=== PATIENT | male | born 1950 | race Caucasian/White ===

== ENCOUNTER → 2017-01-15 | Outpatient (CLI) | payer MEDICARE, OTHER ==
--- NOTE | 2017-01-15 11:06 | RADRPT ---
PROCEDURE: XR Hip. CLINICAL INDICATION: hip pain TECHNIQUE: AP and frog lateral views of the right hip with AP pelvis were performed. COMPARISON: None available FINDINGS: No fracture or dislocation is identified. There is advanced right hip arthrosis with joint space na rrowing, subchondral cystic changes, prominent osteophytes and adjacent periarticular calcifications . No destructive osseous changes are seen. Clips are noted at the total region. IMPRESSION: Advanced right hip arthrosis. RPTAT: GG .Noah Moya MD, MD Date Time Electronically viewed and signed by .Noah Moya MD, MD on 01/15/2017 11:05 .O/
== END | disposition home or self-care (01) ==
LOC: HKI 09:30
PROVIDERS: ATTEND Orthopaedic Surgery
DX: M25.551 Pain in right hip (principal); M16.11 Unilateral primary osteoarthritis, right hip
CPT/HCPCS: 73502

== ENCOUNTER → 2017-01-22 | Outpatient (CLI) | payer MEDICARE, OTHER | END | disposition home or self-care (01) | LOC: HKI 10:43 | PROVIDERS: ATTEND Orthopaedic Surgery | DX: Z01.818 Encounter for other preprocedural examination (principal); M16.11 Unilateral primary osteoarthritis, right hip | CPT/HCPCS: G0463 ==

== ENCOUNTER 2017-01-28 09:25 | Inpatient (IN) | payer MEDICARE, OTHER ==
[2017-01-22 13:46] VITALS: Ht 180.3 cm; Wt 91.0 kg
[~2017-01-28] VITALS: Ht 180.3 cm; Wt 91.0 kg
[2017-04-22] VITALS (31 sets, daily range): BP systolic 113–154; BP diastolic 53–73; PULSE 62–80; RESP 5–18
[2017-04-22] MEDS ORDERED: PREGABALIN 300 MG PO X1 PO SCH (06:00)
[2017-04-22] MEDS ORDERED: LACTATED RINGER'S 1,000 ML IV SCH (06:00)
[2017-04-22] MEDS ORDERED: CELECOXIB 400 MG PO X1 DOSE PO SCH (06:00)
[2017-04-22] MEDS ORDERED: CEFAZOLIN 2GM/50 ML (PMX) 50 ML X1 BEFORE INCISION IVPB SCH (06:00)
[2017-04-22] MEDS ORDERED: TRANEXAMIC ACID 910 MG in SOD CHLORIDE 0.9% 90.9 ML IV SCH (06:00)
[2017-04-22] MEDS: traMADOL 50 MG TAB X 1 DOSE PO SCH ×2 (06:10→13:11)
[2017-04-22] MEDS: oxyCODONE (CR) 10 MG TAB [oxyCONTIN] X1 DOSE PO SCH ×2 (06:10→13:11)
[2017-04-22] MEDS ORDERED: VANCOMYCIN 1 GM INJ ONE (06:42)
[2017-04-22] MEDS ORDERED: SODIUM CL BACTERIOSTATIC 30 ML INJ ONE (06:42)
[2017-04-22] MEDS ORDERED: POLYMYXIN B 500000 UNIT INJ ONE (06:42)
[2017-04-22] MEDS ORDERED: BACITRACIN 50000 UNITS INJ ONE (06:45)
[2017-04-22] MEDS ORDERED: CEFAZOLIN 1 GM INJ ONE (07:00)
[2017-04-22] MEDS ORDERED: PROPOFOL 200 MG INJ ONE (07:00)
--- NOTE | 2017-04-22 07:16 | HPN ---
Date/Time of Note Date/Time of Note DATE: 04/22/17 TIME: 07:15 Interval H&P Admission Note Pt. seen H&P reviewed: No system changes No changes from H&P on 04/10/17 by BRETT Jacinto MD Apr 22, 2017 07:16
[2017-04-22] MEDS ORDERED: MIDAZOLAM 1 MG/ML 2 ML INJ ONE (07:18)
[2017-04-22] MEDS ORDERED: FENTAnyl 50 MCG/ML VIAL ONE (07:18)
[2017-04-22] MEDS ORDERED: PROPOFOL 100 ML ONE (08:01)
[2017-04-22] MEDS ORDERED: LIDOCAINE 2% (SDV) 5 ML INJ ONE (08:01)
[2017-04-22] MEDS ORDERED: PAIN COCKTAIL-CEFUROXIME IRR ONE ×7 (09:00)
[2017-04-22] MEDS ORDERED: BUPIVACAINE LIPOSOME/PF 266 MG/20 ML VIAL INFIL ONE (09:00)
[2017-04-22] MEDS ORDERED: EXPAREL NOTE (BUPIVICAINE LIPOSOMAL) XX SCH (09:00)
[2017-04-22] MEDS ORDERED: EPHEDrine SULFATE 50 MG/5 ML SYG ONE (09:01)
[2017-04-22] MEDS ORDERED: FAMOTIDINE 20 MG INJ ONE (09:01)
[2017-04-22] MEDS ORDERED: DEXAMETHASONE 4 MG/ML 1 ML INJ ONE (09:01)
[2017-04-22] MEDS ORDERED: ONDANSETRON 4 MG INJ ONE (09:01)
[2017-04-22] MEDS ORDERED: ONDANSETRON 4 MG INJ IV PRN ×2 (09:30→10:30)
[2017-04-22] MEDS ORDERED: PROCHLORPERAZINE 10 MG INJ IV PRN (09:30)
[2017-04-22] MEDS ORDERED: DIPHENHYDRAMINE 50 MG INJ IV PRN (09:30)
[2017-04-22] MEDS ORDERED: MEPERIDINE 25 MG INJ IV PRN (09:30)
[2017-04-22] MEDS ORDERED: FENTAnyl 50 MCG/ML VIAL IV PRN (09:30)
[2017-04-22] MEDS ORDERED: TRANEXAMIC ACID 910 MG in SOD CHLORIDE 0.9% 100 ML IVPB SCH (10:00)
--- NOTE | 2017-04-22 10:20 | PN ---
Date/Time of Note Date/Time of Note DATE: 04/22/17 TIME: 10:16 Assessment/Plan Lines/Catheters IV Catheter Type (from Nrsg): Peripheral IV Assessment/Plan Assessment/Plan Stable in PACU, s/p right anterior DELMI -continue Ancef -pain meds as needed -ASA/SCDs -OOB with PT -check AM labs -monitor drain -d/c teresa in AM XR of the right hip is pending at this time Subjective 24 Hr Interval Summary Stable in PACU. Denies pain. Moving all extremities. Drowsy from anesthesia. Exam/Review of Systems Vital Signs Vitals Vital Signs Date Time Temp Pulse Resp B/P Pulse Ox O2 Delivery O2 Flow Rate FiO2 04/22/17 06:00 97.9 71 18 137/68 96 Room Air Exam Free Text/Dictation Hemovac: minimal Dressing dry Incision clean, dry, and intact without redness or drainage 5/5 Quadriceps, Tibialis Anterior, EHL, Gastroc, Soleus, Peroneals Normal sensation Palpable DT/PT, CR <2 sec No distal edema KIP GAFFNEY PA-C Apr 22, 2017 10:20
[2017-04-22] MEDS: HYDROmorphONE (0.2 MG/ML) 10ML SYG IV PRN ×5 (10:22→11:21)
--- NOTE | 2017-04-22 10:29 | OPR ---
Date/Time of Note Date/Time of Note DATE: 04/22/17 TIME: 10:25 Operative Report Procedure Description DATE: 04/22/2017 PREOPERATIVE DIAGNOSIS: Right hip osteoarthritis POSTOPERATIVE DIAGNOSIS: Right hip osteoarthritis OPERATION PERFORMED: Right anterior total hip arthroplasty SURGEON: Brett Jiang MD LUMBER TRIMMER: Alex Cox PA-C COMPONENTS USED: DePuy size 58 mm Gription Dundee cup, 58/40 neutral Ultrex polyethylene liner, size 7 standard Actis stem, 40+5 ceramic head ANESTHESIA: Spinal plus general endotracheal intubation. ANESTHESIOLOGIST: Joyce Coronado M.D. ESTIMATED BLOOD LOSS: 400 cc INTRAVENOUS FLUIDS: Crystalloid 2 L. SPECIMENS: Femoral head. DRAINS: Hemovac 1 COMPLICATIONS: None. DISPOSITION: The patient tolerated the procedure well and was taken to the recovery room in stable condition. INDICATIONS: The patient is a 66-year-old male who has developed advanced osteoarthritis of his right hip. He has tried a multitude of nonsurgical means of treatment to address his pain including activity modifications, pain medications, and ambulatory assist devices. He has had worsening pain that has not improved and I felt he would benefit from a total hip arthroplasty through an anterior approach. 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 He underwent a parathyroidectomy and his calcium levels normalized. 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 The risks, benefits, and alternatives of the procedure were explained in detail to the patient. I explained the risks of the surgery to include, but not be limited to: bleeding and possible need for blood transfusion; infection; pain; stiffness; neurovascular injury with possible numbness, weakness, and/or paralysis anywhere from the hip down to the toes; fracture; instability; dislocation; leg length inequality; wear and/or loosening of the prosthesis and possible need for future revision; blood clots; pulmonary embolism; and anesthetic complications such as heart attack, stroke, GI bleed, pneumonia, and/ or . Ample time was allowed for the patient to ask questions, all of which were addressed and answered. The patient understood the risks involved and wished to proceed. Informed consent was signed prior to the procedure. PROCEDURE: The patient's right hip was initialed with a marking pen in the preoperative area to identify the correct operative site. The patient was brought to the operating room and transferred from the [facility] to the [facility] where a spinal anesthetic was administered. The patient was then anesthetized and intubated. A Latif catheter was placed. Both feet were placed into well padded boots which were then placed into the leg holders of the traction booms. A timeout was performed to confirm that the right side was the correct operative site. The patient was given 2 g of intravenous Ancef within one hour prior to the procedure. The operative hip was prepped and draped in the usual sterile fashion. A 10 cm oblique incision was made over the anterior aspect of the hip and carried down through subcutaneous tissue and fat with sharp dissection. The tensor fascia em was incised along the length of the wound. The tensor fascia muscle was retracted laterally and the sartorius medially. The anterior circumflex vessels were identified and tied off with 2-0 silk suture and coagulated with the [employer] medical physics researcher. The rectus femoris was elevated off the anterior capsule and an anterior capsulectomy performed. There are multiple loose bodies within the hip joint that were excised. A femoral neck osteotomy was made and the head removed from the acetabulum. The acetabulum was denuded of cartilage circumferentially, as was the femoral head. Retractors were placed around the acetabulum. The remnants of the labrum and ligamentum teres were excised. I reamed the acetabulum to the medial wall and then went into an anatomic position and increased the reamer size in 2 mm increments until I got a good bite and was down to bleeding subchondral bone. The Dundee cup was opened and impacted into the acetabulum and sat flush circumferentially, getting a good bite. C-arm imaging showed it had about 40 to 45 degrees of abduction and 20 degrees of anteversion. The real liner was opened and impacted into the acetabulum and sat flush circumferentially. Attention was turned towards the femur. The operative leg was carefully lowered to the floor with the leg adducted. The foot was then externally rotated to approximately 110 degrees. A posteromedial release was performed to optimize exposure. The femoral hook was placed underneath the proximal femur and the hydraulic lift was then used to elevate the femur up out of the wound. The cookie cutter osteotome was used to remove the remaining overhanging greater trochanter. The femur was then broached, going up in one size increments until it sat flush with the neck cut and a stable fit was achieved. The trial neck and head were assembled and reduced into the acetabulum. Fluoroscopic imaging showed the components to be in good position and the leg lengths and offsets to be equal. At this point, the trial was dislocated and the trial broach removed. The canal was irrigated and dried. The real stem was opened and impacted into the femur. The trunnion was irrigated and dried, and the real femoral head was impacted onto the trunnion, and reduced into the acetabulum. The soft tissues were infiltrated with a mixture of 150 mg of 0.5% Bupivacaine, 8 mg of Duramorph, 300 mcg of epinephrine, 30 mg of Toradol, 100 mcg of clonidine, 750 mg of cefuroxime and 86 mL of normal saline, followed by an injection of 266 mg of liposomal Bupivacaine. At this point the hip was irrigated with a mixture of betadine/saline and then antibiotic saline with pulsatile lavage. A Hemovac drain was placed in the deep portion of the wound and brought out the anterolateral thigh. There was good hemostasis. The tensor fascia em was repaired with a running #1 Vicryl. The deep fat layer was irrigated and closed with 2-0 Stratafix and the subcutaneous layer closed with 3 -0 Vicryl and the skin was closed with gonzález and then sealed with Dermabond. The drain was secured with 3-0 nylon. The sponge and needle counts were correct at the end of the case. The wound was covered with an occlusive dressing. The patient was awakened, extubated, and taken to the recovery room in stable condition. BRETT JIANG MD Apr 22, 2017 10:29
[2017-04-22] MEDS ORDERED: NACL 0.9% 3 ML SYG IV SCH (10:30)
[2017-04-22] MEDS ORDERED: ASPIRIN (EC) 325 MG TAB PO ONE (10:30)
[2017-04-22] MEDS ORDERED: NA PHOSPHATE/BIPHOS 133 ML ENEMA PR PRN (10:30)
[2017-04-22] MEDS ORDERED: HYDROCODONE/APAP (5/325) TAB PO PRN (10:30)
[2017-04-22] MEDS ORDERED: DIPHENHYDRAMINE 25 MG CAP PO PRN (10:30)
[2017-04-22] MEDS ORDERED: HYDROmorphONE 1 MG/ML SYG IV PRN (10:30)
[2017-04-22] MEDS ORDERED: BISACODYL 10 MG SUPP PR PRN (10:30)
[2017-04-22] MEDS: CEFAZOLIN 2 GM/50 ML (PMX) 50 ML IVPB SCH ×2 (10:39→18:12)
--- NOTE | 2017-04-22 11:47 | RADRPT ---
PROCEDURE: XR Pelvis CLINICAL INDICATION: Postop TECHNIQUE: An AP radiograph was submitted. COMPARISON: 01/15/2017 FINDINGS: Osseous structures: Since the previous study, the patient has undergone a total right hip arthroplas ty and the components appear well seated although of the inferior femoral stem is not included. The remaining osseous elements appear intact. Joint spaces: The left hip and the sacroiliac joints appear unremarkable. Soft tissues: A surgical drain has been placed and there is a small amount of subcutaneous air. Lat eral gonzález are noted. A Latif catheter is now evident. IMPRESSION: 1. There is now a well seated total right hip replacement with a surgical drain and superficial sta ples evident. 2. A Latif catheter is been placed. Physician Hua Date Time Electronically viewed and signed by Physician Hua on 04/22/2017 11:47 /
[2017-04-22 11:49] LABS: HEMOGLOBIN 11.7 g/dl (14.0-18.0)
--- NOTE | 2017-04-22 11:49 | RADRPT ---
PROCEDURE: XR Right Hip CLINICAL INDICATION: Postop TECHNIQUE: A single AP portable view of the right hip was submitted. COMPARISON: Compared to the intraoperative study done earlier on the same date FINDINGS: Osseous structures: There is again a well seated total right hip replacement. Joint spaces: The prosthetic joint spaces well maintained. Soft tissues: A surgical drain and lateral gonzález been placed. There is a small amount of subcutan eous air. IMPRESSION: 1. Well seated total right hip replacement. 2. A drain is been placed send there are superficial gonzález seen laterally. Physician Hua Date Time Electronically viewed and signed by Physician Hua on 04/22/2017 11:48 /
--- NOTE | 2017-04-22 11:50 | RADRPT ---
PROCEDURE: RF intraoperative images of right hip CLINICAL INDICATION: Right hip arthroplasty TECHNIQUE: 81 x-ray images were obtained intraoperatively during a right hip arthroplasty procedur e. COMPARISON: None available FINDINGS: 81 x-ray images were obtained intraoperatively for localization during a total right hip replacement . 8.6 minutes of fluoroscopy time was utilized by Dr. Donis during the procedure. IMPRESSION: Xray images obtained intraoperatively for localization during a total right hip replacement. Physician Hua Date Time Electronically viewed and signed by Physician Hua on 04/22/2017 11:50 RH/
[2017-04-22] MEDS: LACTATED RINGER'S 1,000 ML IV SCH ×3 (12:00→21:55)
[2017-04-22] MEDS: traMADol 50 MG TAB PO SCH ×2 (12:00→18:13)
[2017-04-22 12:07] LABS: CALCIUM 7.8 mg/dl (8.4-10.2); CREATININE 0.75 mg/dl (0.61-1.24); POTASSIUM 5.4 mmol/L (3.5-5.1)
[2017-04-22] MEDS ORDERED: TRANEXAMIC ACID 910 MG in SOD CHLORIDE 0.9% 100 ML IVPB ONE ×2 (13:30→16:30)
[2017-04-22] MEDS: PANTOPRAZOLE (EC) 40 MG TAB PO SCH (18:12)
[2017-04-22 19:51] LABS: ADD UMIC YES; UR ASCORBIC ACID NEGATIVE (NEGATIVE); UR BILIRUBIN (Dip) NEGATIVE (NEGATIVE); UR BLOOD (Dip) NEGATIVE (NEGATIVE); UR CLARITY CLEAR (CLEAR); UR COLOR YELLOW (YELLOW); UR GLUCOSE (Dip) NEGATIVE (NEGATIVE); UR KETONES (Dip) TRACE mg/dL (NEGATIVE); UR LEUKOCYTE ESTERASE (Dip) NEGATIVE Leu/ul (NEGATIVE); UR NITRITE (Dip) NEGATIVE (NEGATIVE); UR RBC 0 /HPF (0-5); UR SPECIFIC GRAVITY (Dip) 1.021 (1.003-1.030); UR TOTAL PROTEIN (Dip) 1+ mg/dl (NEGATIVE); UR URIC ACID CRYSTAL MANY /HPF (NONE SEEN); UR UROBILINOGEN (Dip) NEGATIVE (NEGATIVE)
[2017-04-22] MEDS: HYDROCODONE/APAP (5/325) TAB PO PRN (20:45)
[2017-04-22] MEDS: DOCUSATE SODIUM 100 MG CAP PO SCH (20:45)
[2017-04-23] MEDS: traMADol 50 MG TAB PO SCH ×4 (00:02→18:39)
[2017-04-23 00:15] VITALS: BP 128/58; RESP 19
[2017-04-23] MEDS: CEFAZOLIN 2 GM/50 ML (PMX) 50 ML IVPB SCH (01:16)
[2017-04-23] MEDS: HYDROCODONE/APAP (5/325) TAB PO PRN ×3 (01:17→14:22)
[2017-04-23 05:55] LABS: HEMATOCRIT 29.1 % (42.0-52.0); HEMOGLOBIN 9.7 g/dl (14.0-18.0)
[2017-04-23 06:14] LABS: MAGNESIUM 1.8 mg/dl (1.7-2.5); PHOSPHORUS 3.3 mg/dl (2.5-4.9)
[2017-04-23] MEDS: PANTOPRAZOLE (EC) 40 MG TAB PO SCH ×2 (06:17→17:35)
[2017-04-23] MEDS: LACTATED RINGER'S 1,000 ML IV SCH (06:17)
[2017-04-23 07:12] LABS: CALCIUM 7.9 mg/dl (8.4-10.2); CREATININE 0.68 mg/dl (0.61-1.24); POTASSIUM 4.3 mmol/L (3.5-5.1)
[2017-04-23] MEDS: DOCUSATE SODIUM 100 MG CAP PO SCH ×2 (08:19→21:00)
[2017-04-23] MEDS: ASPIRIN (EC) 325 MG TAB PO SCH (08:20)
[2017-04-23 08:28] VITALS: BP 121/56; RESP 18
--- NOTE | 2017-04-23 08:43 | PN ---
Date/Time of Note Date/Time of Note DATE: 04/23/17 TIME: 08:41 Assessment/Plan Lines/Catheters IV Catheter Type (from Nrsg): Peripheral IV Latif in Place (from Nrsg): Yes Assessment/Plan Assessment/Plan Stabel POD #1, s/p right anterior DELMI -d/c Ancef -pain meds as needed -ASA/SCDs -OOB with PT -drain removed -check AM labs -d/c planning. Possible discharge home tomorrow Subjective 24 Hr Interval Summary No acute overnight events. Denies significant pain. Began PT yesterday. VSS, afebrile. Will plan to go home upon discharge. Exam/Review of Systems Vital Signs Vitals Vital Signs Date Time Temp Pulse Resp B/P Pulse Ox O2 Delivery O2 Flow Rate FiO2 04/23/17 08:28 98.4 85 18 121/56 98 04/22/17 16:00 Room Air 04/22/17 11:51 3.0 Intake and Output 04/22/17 04/22/17 04/23/17 14:59 22:59 06:59 Intake Total 2300 ml 1625 ml 1650 ml Output Total 710 ml 1240 ml 2580 ml Balance 1590 ml 385 ml -930 ml Exam Free Text/Dictation Hemovac: 230cc Dressing dry Incision clean, dry, and intact without redness or drainage 5/5 Quadriceps, Tibialis Anterior, EHL, Gastroc, Soleus, Peroneals Normal sensation Palpable DT/PT, CR <2 sec No distal edema Results Result Diagram: 04/23/17 0431 04/23/17 043 KIP GAFFNEY PA-C Apr 23, 2017 08:42
--- NOTE | 2017-04-23 08:55 | CONS ---
Date/Time of Note Date/Time of Note DATE: 04/23/17 TIME: 08:51 Assessment/Plan Assessment/Plan Additional Assessment/Plan 1. Doing well post op right hip replacement 2. S/P parathyroidectomy with now nl calcium Consultation Date/Type/Reason Admit Date/Time Apr 22, 2017 at 05:29 Initial Consult Date Detailed Summary Respiratory: No cough, No shortness of breath Cardiovascular: No chest pain Gastrointestinal: no complaints Genitourinary: no complaints Musculoskeletal: bone/joint pain (mild right hip pain) Exam/Review of Systems Vital Signs Vitals Vital Signs Date Time Temp Pulse Resp B/P Pulse Ox O2 Delivery O2 Flow Rate FiO2 04/23/17 08:28 98.4 85 18 121/56 98 04/22/17 16:00 Room Air 04/22/17 11:51 3.0 Intake and Output 04/22/17 04/22/17 04/23/17 15:00 23:00 07:00 Intake Total 2300 ml 1625 ml 1650 ml Output Total 710 ml 1240 ml 2580 ml Balance 1590 ml 385 ml -930 ml Exam Neck: No jvd Respiratory: clear to auscultation Cardiovascular: regular rate and rhythm Gastrointestinal: soft Extremities: No edema (and no calf tend) Results Result Diagram: 04/23/17 0431 04/23/17 0431 Results 24 hrs Laboratory Tests Test 04/22/17 10:13 04/22/17 11:39 04/22/17 15:10 04/23/17 04:31 Urine Color YELLOW Urine Clarity CLEAR Urine pH 5.0 Urine Specific Rebuck 1.021 Urine Ketones TRACE A Urine Nitrite NEGATIVE Urine Bilirubin NEGATIVE Urine Urobilinogen NEGATIVE Urine Leukocyte Esterase NEGATIVE Urine Microscopic RBC 0 Urine Microscopic WBC 3 Urine Uric Acid Crystals MANY A Urine Hemoglobin NEGATIVE Urine Glucose NEGATIVE Urine Total Protein 1+ H Hemoglobin 11.7 L 9.7 L Hematocrit 37.0 L 29.1 #L Sodium Level 141 140 Potassium Level 5.4 H 4.6 4.3 Chloride Level 105 102 Carbon Dioxide Level 28 29 Anion Gap 13 13 Blood Urea Nitrogen 12 13 Creatinine 0.75 0.68 Glucose Level 151 125 Calcium Level 7.8 L 7.9 L Phosphorus Level 3.3 Magnesium Level 1.8 Medications Medications Current Medications Miscellaneous Information 1 ea 1 ea NOTE XX ; Start 04/22/17 at 09:00; Stop at 08:59 Lactated Ringer's (Lr) 1,000 ml @ 125 mls/hr Q8H IV Last administered on 06:17; Admin Dose 125 MLS/HR; Start 04/22/17 at 10:11 Tramadol HCl (Ultram) 50 mg Q6 PO Last administered on 04/23/17 06:17; Admin Dose 50 MG; Start 04/22/17 at 12:00; Stop 04/25/17 at 11:59 Acetaminophen/ Hydrocodone Bitart ([place] (5/325)) 1 tab Q4H PRN PO PAIN LEVEL 1 -3 Last administered on 04/23/17 08:20; Admin Dose 1 TAB; Start 04/22/17 at 10: 30 Acetaminophen/ Hydrocodone Bitart ([place] (5/325)) 2 tab Q4H PRN PO PAIN LEVEL 4 -7; Start 04/22/17 at 10:30 Hydromorphone HCl (Dilaudid) 1 mg Q3H PRN IV PAIN LEVEL 8-10; Start 04/22/17 at 10:30 Ondansetron HCl (Zofran Inj) 4 mg Q6H PRN IV NAUSEA AND/OR VOMITING; Start at 10:30 Bisacodyl (Dulcolax Supp) 10 mg Q12H PRN MA CONSTIPATION; Start 04/22/17 at 10: 30 Magnesium Hydroxide (Milk Of Mag) 30 ml BID PRN PO CONSTIPATION; Start at 10:30 Sodium Biphosphate/ Sodium Phosphate (Fleet Enema) 133 ml DAILY PRN MA CONSTIPATION; Start 04/22/17 at 10:30 Docusate Sodium (Colace) 100 mg BID PO Last administered on 04/23/17 08:19; Admin Dose 100 MG; Start 04/22/17 at 21:00 Diphenhydramine HCl (Benadryl) 25 mg Q6H PRN PO PRURITUS; Start 04/22/17 at 10: 30 Aspirin (Ecotrin) 325 mg BID PO Last administered on 04/23/17 08:20; Admin Dose 325 MG; Start 04/23/17 at 09:00 Pantoprazole (Protonix Tab) 40 mg BID@0618 PO Last administered on 04/23/17 06:17; Admin Dose 40 MG; Start 04/22/17 at 18:00 LINDY REHMAN MD Apr 23, 2017 08:54
[2017-04-23] MEDS: MAGNESIUM HYDROXIDE 30ML CUP PO PRN ×2 (13:05→17:40)
[2017-04-23 19:58] VITALS: BP 153/67; RESP 20
[2017-04-24] MEDS: ASPIRIN (EC) 325 MG TAB PO SCH ×2 (00:04→08:47)
[2017-04-24] MEDS: traMADol 50 MG TAB PO SCH ×2 (00:04→05:29)
[2017-04-24] MEDS: PANTOPRAZOLE (EC) 40 MG TAB PO SCH (05:29)
[2017-04-24 05:31] LABS: HEMATOCRIT 29.5 % (42.0-52.0); HEMOGLOBIN 9.7 g/dl (14.0-18.0)
[2017-04-24 05:51] LABS: CREATININE 0.65 mg/dl (0.61-1.24); POTASSIUM 4.1 mmol/L (3.5-5.1)
[2017-04-24 07:00] VITALS: BP 139/59; RESP 18
[2017-04-24] MEDS: MAGNESIUM HYDROXIDE 30ML CUP PO PRN (07:14)
--- NOTE | 2017-04-24 08:26 | PDOCDIS ---
Discharge Instructions DIAGNOSIS Discharge Diagnosis s/p right anterior DELMI CONDITION Patient Condition: Good HOME CARE INSTRUCTIONS: Diet Instructions: RegularSpecial Diet: REGULAR ACTIVITY: Activity Restrictions: Slowly Increase Activity Rest between Activity Avoid heavy lifting Do not operate Machinery Do not operate Power Tool Avoid Heavy Housework Keep Limb Elevated Weight Bearing FOLLOW UP/APPOINTMENTS Follow-up Plan follow up in the office on 05/02/17 OTHER ORDERS: Other Orders: S/P Anterior DELMI Physical Therapy: Three times per week at home x 2 weeks Daily in Rehab/SNF WB STATUS: WBAT Strengthening exercises for both upper and un-operated lower extremities. 1. Gait training with front wheeled walker 2. Wide base gait, no pivot turns. 3. Abductor strengthening. 4. Quadriceps and hamstring strengthening. 5. May switch to cane in contra lateral hand 6 weeks after surgery. 6. Physical Therapy can open case if nursing is not available. 7. Ice Packs while at rest to surgical wound for 20 minutes, 3 times/day. 8. Patient requires mobile SCDs to reduce risk of developing DVT following DELMI. Patient will use the mobile SCDs for 30 days postoperatively. Hip Precautions: No posterior hip precautions. Bathing assistance by home health aide twice weekly if Medicare patient. Occupational Therapy: Evaluation for assistive devices and ADL training. Wound Care: Keep incision dry & covered with Tegaderm until first visit with Dr. Donis Anticoagulation Orders: Enteric Coated Aspirin 325 mg po bid x 6 weeks from date of surgery Follow-up:Call for an appointment with Dr. Donis in 1 week after discharged from hospital at DME Orders: TORRES, 3-in-1 Commode, Mobile SCDs KIP GAFFNEY PA-C Apr 24, 2017 08:26
[2017-04-24] MEDS ORDERED: HYDR-3498 PO (08:27)
[2017-04-24] MEDS ORDERED: PANT40TA4 PO (08:27)
[2017-04-24] MEDS ORDERED: TRAM50TA2 PO (08:27)
[2017-04-24] MEDS ORDERED: ASPI325T32 PO (08:27)
[2017-04-24] MEDS: DOCUSATE SODIUM 100 MG CAP PO SCH (08:47)
[2017-04-24] MEDS: HYDROCODONE/APAP (5/325) TAB PO PRN (08:49)
--- NOTE | 2017-04-24 10:06 | PN ---
Date/Time of Note Date/Time of Note DATE: 04/24/17 TIME: 10:05 Assessment/Plan Lines/Catheters IV Catheter Type (from Nrsg): Saline Lock Latif in Place (from Nrsg): No Assessment/Plan Assessment/Plan Stable POD #2, s/p right anterior DELMI -pain meds as needed -ASA/SCDs -OOB with PT -dressing changed -d/c home today -follow up in the office in 1 week Subjective 24 Hr Interval Summary No acute overnight events. Denies significant pain. VSS, afebrile. Would like to go home today. Exam/Review of Systems Vital Signs Vitals Vital Signs Date Time Temp Pulse Resp B/P Pulse Ox O2 Delivery O2 Flow Rate FiO2 04/24/17 07:00 98.1 89 18 139/59 97 04/22/17 16:00 Room Air 04/22/17 11:51 3.0 Intake and Output 04/23/17 04/23/17 04/24/17 15:00 23:00 07:00 Intake Total 350 ml 500 ml Balance 350 ml 500 ml Exam Free Text/Dictation Dressing dry Incision clean, dry, and intact without redness or drainage 5/5 Quadriceps, Tibialis Anterior, EHL, Gastroc, Soleus, Peroneals Normal sensation Palpable DT/PT, CR <2 sec No distal edema Results Result Diagram: 04/24/1743904/24/17439 KIP GAFFNEY PA-C Apr 24, 2017 10:06
--- NOTE | 2017-04-24 10:14 | DS ---
Date/Time of Note Date/Time of Note DATE: 04/24/17 TIME: 10:11 Discharge Summary Admission/Discharge Info Admit Date/Time Apr 22, 2017 at 05:29 Discharge Date/Time 04/24/2017 Discharge Diagnosis s/p right anterior DELMI Patient Condition: Good Procedures Right anterior total hip arthroplasty Hospital Course This is a 66-year-old gentleman who presented to the clinic initially complaining of right hip pain. He had undergone a previous surgery in his youth and x-rays demonstrated advanced osteoarthritis of the right hip. It was thought he would benefit from a right anterior total hip orthoplasty. On 2016 the patient was admitted and taken to the operating room, where he underwent a right anterior total hip arthroplasty. There were no intraoperative complications. He tolerated the procedure well. He was taken to the recovery room in stable condition. Pain was well-controlled oral pain medication. He was started on aspirin and SCDs for DVT prophylaxis. He remained hemodynamically stable and neurovascularly intact throughout his hospital stay. He began physical therapy on postoperative day 0 and was deemed stable for discharge on postoperative day 2. Prior to discharge, the incision was inspected and noted to be clean dry and intact. Dressing changes were done prior to patient going home. DISCHARGE INSTRUCTIONS: The patient will be discharged home in stable condition. He is to resume a normal diet. He is weightbearing as tolerated on the right lower extremity. He will begin physical therapy with home health. He will discharged home with the medication noted, and is to resume all of his normal home medication. The patient is to call the office or go to emergency room for any concerns including increased redness, swelling, drainage, fever, or any concerns regarding the operation or site of incision. Home Meds Active Scripts Tramadol HCl (Tramadol HCl) 50 Mg Tablet, 50 MG PO Q6 for 30 Days, #60 TAB Prov:KIP GAFFNEY PA-C 04/24/17 Pantoprazole* (Pantoprazole*) 40 Mg Tablet.dr 40 MG PO BID@ for 40 Days, # 40 Prov:KIP GAFFNEY PA-C 04/24/17 Hydrocodone Bit-Acetaminophen (Hydrocodone Bit-APAP) 5-325MG Tablet, 1 TAB PO Q4H Y for PAIN LEVEL 1-3 for 30 Days, #60 TAB Prov:KIP GAFFNEYC 04/24/17 Aspirin (Aspir-Katherine) 325 Mg Tablet., 325 MG PO BID for 40 Days, #80 Prov:KIP GAFFNEY PA-C 04/24/17 Follow-up Plan Follow-up in the office on 05/02/2017 Primary Care Provider Rl Jordan Pending Labs Laboratory Tests Test 04/24/17 04:40 Hemoglobin 9.7g/dl (14.0-18.0) Hematocrit 29.5% (42.0-52.0) Sodium Level 139mmol/L (135-144) Potassium Level 4.1mmol/L (3.5-5.1) Chloride Level 99mmol/L (97-110) Carbon Dioxide Level 31mmol/L (21-31) Anion Gap 13 (8-16) Blood Urea Nitrogen 12mg/dl (7-20) Creatinine 0.65mg/dl (0.61-1.24) Glucose Level 143mg/dl (70-220) Calcium Level 8.0mg/dl (8.4-10.2) KIP GAFFNEY PA-C Apr 24, 2017 10:13
--- NOTE | 2017-04-24 10:56 | CONS ---
DATE OF ADMISSION: 04/22/2017 DATE OF CONSULTATION: 04/22/2017 Thank you very much for allowing me to evaluate the above patient who just underwent right anterior total hip arthroplasty. HISTORY OF PRESENT ILLNESS: As you well know, this patient has had progressive, disabling pain involving his right hip and elected to proceed with surgery. Postoperatively on the orthopedic floor, he is comfortable without cough, wheezing, shortness of breath, nausea, vomiting, abdominal or chest pain. PAST MEDICAL HISTORY: 1. Hypercalcemia thought secondary to hyperparathyroidism. 2. Fatigue. 3. Seasonal allergies. 4. Low vitamin D. 5. Hyperlipidemia. 6. hip surgery and hernia repair. 7. No history of coronary disease or diabetes, peptic disease or phlebitis. MEDICATIONS PRIOR TO ADMISSION: 1. Calcium carbonate 500 b.i.d. 2. 20 mg p.r.n. SOCIAL HISTORY: He is , does not smoke, occasionally drinks alcohol. EXAM: GENERAL: A spry male in no acute distress. VITALS: BP 110/72. Respirations were 18. He was afebrile. HEENT: Eyes, extraocular muscles were full. Nose, mouth, and throat were normal. NECK: Supple. There was no jugular venous distention, thyroid enlargement, or adenopathy. Carotids 2+. LUNGS: Clear. HEART: Within regular. ABDOMEN: Nontender. Liver and spleen were not palpable. No mass or tenderness is noted. EXTREMITIES: No edema. Calves nontender. NEUROLOGIC: No lateralizing mode or weakness. IMPRESSION: 1. Stable postop right total hip arthroplasty. 2. History of hypercalcemia. This will be monitored. 3. Will evaluate daily for signs and symptoms of thromboembolic disease. He has had appropriate deep vein thrombosis (DVT) prophylaxis. Dictated By: Noel Romo MD /ramiro/janell /Document#: [id number]
== END 2017-04-24 10:45 | disposition home or self-care (01) | DRG 470 ==
LOC: REC 04-22 05:29 → MS1 04-22 12:00
PROVIDERS: ADMIT Orthopaedic Surgery; ATTEND Orthopaedic Surgery
PROC: 0SR904Z Replacement of Right Hip Joint with Ceramic on Polyethylene Synthetic Substitute, Open Approach (ICD-10-PCS; principal; 2017-04-22 07:00)
DX: M16.11 Unilateral primary osteoarthritis, right hip (principal); E78.5 Hyperlipidemia, unspecified
CPT/HCPCS: 72170; 73500; 73530; 80048; 81001; 83735; 84100; 84132; 85014; 85018; 86850; 86900; 86901; 86920; 87081; 87086; 88304; 88311; 97003; 97110; 97116; 97163; 97167; 97530; 97535; C1776; C9290; J0171; J0690; J0697; J0735; J1100; J1170; J1885; J2175; J2250; J2274; J2405; J3010; J3370; J7120

== ENCOUNTER → 2017-04-16 | Outpatient (CLI) | payer MEDICARE, OTHER | END | disposition home or self-care (01) | LOC: HKI 10:00 | PROVIDERS: ATTEND Orthopaedic Surgery | DX: Z01.818 Encounter for other preprocedural examination (principal) ==

== ENCOUNTER → 2017-05-02 | Outpatient (CLI) | payer MEDICARE, OTHER ==
[~2017-05-02] MED LIST: ASPI325T32 PO; HYDR-3498 PO; PANT40TA4 PO; TRAM50TA2 PO
--- NOTE | 2017-05-02 14:33 | PN ---
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 We advised him to keep the area clean and dry and avoid any more adhesive dressings. He is to continue aspirin 325 mg twice daily for DVT prophylaxis. Additionally he should the pain medicine as needed and also continue with home health physical therapy. We will see him back in 3 weeks for a follow-up evaluation and to make sure that the skin irritation has resolved. If he has any concerns he will call the office in the meantime. Subjective 24 Hr Interval Summary Free Text/Dictation The patient presents today for his first postoperative evaluation of his right hip. He is 10 days status post right anterior total hip arthroplasty. He is doing well overall. He denies having significant pain. He did develop some skin irritation secondary to the Tegaderm dressing. He discontinued using them 4 days ago after we spoke over the phone but he continues to have some irritation. He states the pruritus that he was feeling has resolved however. He denies any fevers or chills. He is taking aspirin twice daily for DVT prophylaxis. He has only been using tramadol for pain and is progressed to using a cane to ambulate. He presents today for his first postoperative evaluation. Exam/Review of Systems Exam On exam today, he is alert and oriented 4, in no acute distress. He is using a cane to ambulate. Examining incision demonstrates it to be clean dry and intact. González are in place. He does have some irritation surrounding the incision that is secondary to the Tegaderm dressing. There is no pus, warmth, erythema, or drainage noted. He is able to do a straight leg raise. He has no pain with passive range of motion of the right hip. His leg lengths are equal. Apartment otherwise soft. He is neurovascularly intact distally. IMAGING: X-rays of the right hip were obtained today and reviewed by me. They demonstrate good anatomic alignment with no fractures or dislocations identified KIP GAFFNEY PA-C May 02, 2017 14:33
--- NOTE | 2017-05-02 15:28 | RADRPT ---
PROCEDURE: XR Right hip and pelvis. CLINICAL INDICATION: Right hip pain. Pelvic pain. Postop. TECHNIQUE: Two views. Frontal pelvis and frontal right hip. COMPARISON: 04/22/2017. FINDINGS: There is no fracture or dislocation. Previously noted surgical drain and right lateral skin goznález have been removed. Surgical clips ar e present in the scrotum bilaterally. The Latif catheter has been removed. There is a right hip total arthroplasty which appears satisfactory. The left hip is grossly normal. There is no lytic or blastic lesion. The upper pelvis is not completely included on the image. IMPRESSION: 1. Satisfactory postoperative appearance of the right hip. 2. Grossly normal appearance of the left hip. RPTAT: QQ .Rigoberto Henao MD, MD Date Time Electronically viewed and signed by .Rigoberto Henao MD, on 05/02/2017 15:28 .R/
== END | disposition home or self-care (01) ==
LOC: HKI 13:43
PROVIDERS: ATTEND Orthopaedic Surgery
DX: Z47.1 Aftercare following joint replacement surgery (principal); Z96.641 Presence of right artificial hip joint
CPT/HCPCS: 73502

== ENCOUNTER → 2017-05-23 | Outpatient (CLI) | payer MEDICARE, OTHER ==
--- NOTE | 2017-05-24 11:31 | RADRPT ---
PROCEDURE: XR pelvis and right hip. CLINICAL INDICATION: PAIN TECHNIQUE: AP pelvis, and AP view of the right hip were performed. COMPARISON: 05/02/2017 FINDINGS: The patient is status post right total hip arthroplasty. There is appropriate position of the prosth esis. The left hip is normal. The visualized pelvic bones are intact. Clips are seen in the scrotum . IMPRESSION: Right total hip arthroplasty. No evidence of complication Physician Karolina Date Time Electronically viewed and signed by Physician Karolina on 05/24/2017 11:30 CS/
== END | disposition home or self-care (01) ==
LOC: HKI 13:25
PROVIDERS: ATTEND Orthopaedic Surgery
DX: M16.11 Unilateral primary osteoarthritis, right hip (principal); Z09 Encounter for follow-up examination after completed treatment for conditions other than malignant neoplasm; Z96.641 Presence of right artificial hip joint
CPT/HCPCS: 73502